=== PATIENT | female | born 1965 | race Caucasian/White ===

== ENCOUNTER 2016-03-09 07:25 | Outpatient (CLI) | payer OTHER ==
[2016-03-09 07:42] LABS: BASOPHILS % 0.6 (0.0-1.5); EOSINOPHILS % 3.8 % (0.0-6.8); LYMPHOCYTES # 1.8 # k/uL (0.6-4.0); MEAN CORPUSCULAR HEMOGLOBIN 30.8 pg (28.0-34.0); MONOCYTES # 0.3 # k/uL (0.0-0.9); MONOCYTES % 3.9 % (0.0-11.0); NEUTROPHILS # 4.2 # k/uL (1.4-7.7)
[2016-03-09 08:14] LABS: eGFR (African) > 60; eGFR (Non-African) > 60
== END 2016-03-09 07:26 ==
LOC: LAB 07:25
PROVIDERS: ATTEND Internal Medicine Nephrology
DX: Z51.81 Encounter for therapeutic drug level monitoring (principal); Z94.4 Liver transplant status; Z79.899 Other long term (current) drug therapy
CPT/HCPCS: 36415; 80053; 80061; 84100; 85025

== ENCOUNTER 2016-04-06 07:18 | Outpatient (CLI) | payer OTHER ==
[2016-04-06 08:12] LABS: BASOPHILS % 0.7 (0.0-1.5); EOSINOPHILS % 3.6 % (0.0-6.8); LYMPHOCYTES # 1.6 # k/uL (0.6-4.0); MEAN CORPUSCULAR HEMOGLOBIN 30.3 pg (28.0-34.0); MONOCYTES # 0.3 # k/uL (0.0-0.9); MONOCYTES % 4.8 % (0.0-11.0); NEUTROPHILS # 4.3 # k/uL (1.4-7.7)
== END 2016-04-06 07:20 ==
LOC: LAB 07:18
PROVIDERS: ATTEND Internal Medicine Nephrology
DX: Z79.899 Other long term (current) drug therapy (principal); Z94.0 Kidney transplant status; E78.5 Hyperlipidemia, unspecified
CPT/HCPCS: 36415; 80069; 85025

== ENCOUNTER 2016-04-15 07:10 | Outpatient (CLI) | payer OTHER | END 2016-04-15 07:30 | LOC: LAB 07:10 | PROVIDERS: ATTEND Internal Medicine Nephrology | DX: Z94.0 Kidney transplant status (principal) | CPT/HCPCS: 36415; 80069 ==

== ENCOUNTER 2016-05-07 07:08 | Outpatient (CLI) | payer OTHER ==
[2016-05-07 07:27] LABS: BASOPHILS % 0.9 (0.0-1.5); EOSINOPHILS % 2.8 % (0.0-6.8); LYMPHOCYTES # 2.1 # k/uL (0.6-4.0); MEAN CORPUSCULAR HEMOGLOBIN 31.6 pg (28.0-34.0); MONOCYTES # 0.4 # k/uL (0.0-0.9); MONOCYTES % 5.1 % (0.0-11.0); NEUTROPHILS # 4.4 # k/uL (1.4-7.7)
== END 2016-05-07 07:10 ==
LOC: LAB 07:08
PROVIDERS: ATTEND Internal Medicine Nephrology
DX: Z51.81 Encounter for therapeutic drug level monitoring (principal); Z79.899 Other long term (current) drug therapy; Z94.0 Kidney transplant status; E78.5 Hyperlipidemia, unspecified
CPT/HCPCS: 36415; 80069; 85025

== ENCOUNTER 2016-06-04 07:10 | Outpatient (CLI) | payer OTHER ==
[2016-06-04 08:04] LABS: BASOPHILS % 1.1 (0.0-1.5); EOSINOPHILS % 3.9 % (0.0-6.8); MEAN CORPUSCULAR VOLUME 92.3 fl (80.0-100.0); MONOCYTES % 4.3 % (0.0-11.0); NEUTROPHILS # 3.9 # k/uL (1.4-7.7)
[2016-06-04 08:19] LABS: eGFR (African) > 60; eGFR (Non-African) > 60
== END 2016-06-04 07:11 ==
LOC: LAB 07:10
PROVIDERS: ATTEND Internal Medicine Nephrology
DX: R53.83 Other fatigue (principal)
CPT/HCPCS: 36415; 80053; 80061; 82306; 84100; 84439; 84443; 84481; 85025

== ENCOUNTER 2016-07-07 07:11 | Outpatient (CLI) | payer OTHER ==
[2016-07-07 07:33] LABS: BASOPHILS % 0.9 (0.0-1.5); EOSINOPHILS % 3.6 % (0.0-6.8); MEAN CORPUSCULAR HEMOGLOBIN 31.1 pg (28.0-34.0); MEAN CORPUSCULAR VOLUME 92.8 fl (80.0-100.0); MONOCYTES % 4.7 % (0.0-11.0); NEUTROPHILS # 4.6 # k/uL (1.4-7.7)
== END 2016-07-07 07:12 ==
LOC: LAB 07:11
PROVIDERS: ATTEND Internal Medicine Nephrology
DX: E55.9 Vitamin D deficiency, unspecified (principal)
CPT/HCPCS: 36415; 80069; 85025

== ENCOUNTER 2016-08-06 07:11 | Outpatient (CLI) | payer OTHER ==
[2016-08-06 07:48] LABS: BASOPHILS % 1.4 (0.0-1.5); EOSINOPHILS % 3.2 % (0.0-6.8); MEAN CORPUSCULAR HEMOGLOBIN 31.9 pg (28.0-34.0); NEUTROPHILS # 4.6 # k/uL (1.4-7.7)
== END 2016-08-06 07:12 ==
LOC: LAB 07:11
PROVIDERS: ATTEND Internal Medicine Nephrology
DX: E78.5 Hyperlipidemia, unspecified (principal); Z94.0 Kidney transplant status; Z79.899 Other long term (current) drug therapy
CPT/HCPCS: 36415; 80069; 85025

== ENCOUNTER 2016-09-06 07:11 | Outpatient (CLI) | payer OTHER ==
[2016-09-06 07:45] LABS: BASOPHILS % 1.1 (0.0-1.5); EOSINOPHILS % 2.9 % (0.0-6.8); MEAN CORPUSCULAR VOLUME 93.4 fl (80.0-100.0); MONOCYTES % 4.1 % (0.0-11.0); NEUTROPHILS # 6.7 # k/uL (1.4-7.7)
[2016-09-06 08:05] LABS: eGFR (African) > 60; eGFR (Non-African) > 60
== END 2016-09-06 07:12 ==
LOC: LAB 07:11
PROVIDERS: ATTEND Internal Medicine Nephrology
DX: Z94.0 Kidney transplant status (principal); Z79.899 Other long term (current) drug therapy; E78.5 Hyperlipidemia, unspecified
CPT/HCPCS: 36415; 80053; 80061; 84100; 85025

== ENCOUNTER 2016-10-07 07:14 | Outpatient (CLI) | payer OTHER ==
[2016-10-07 07:36] LABS: BASOPHILS % 1.3 (0.0-1.5); EOSINOPHILS % 4.5 % (0.0-6.8); MEAN CORPUSCULAR HEMOGLOBIN 31.8 pg (28.0-34.0); MEAN CORPUSCULAR VOLUME 87.5 fl (80.0-100.0); MONOCYTES % 4.8 % (0.0-11.0); NEUTROPHILS # 4.9 # k/uL (1.4-7.7)
== END 2016-10-07 07:15 ==
LOC: LAB 07:14
PROVIDERS: ATTEND Internal Medicine Nephrology
DX: E78.5 Hyperlipidemia, unspecified (principal); Z94.0 Kidney transplant status; Z79.899 Other long term (current) drug therapy
CPT/HCPCS: 36415; 80069; 85025

== ENCOUNTER 2016-11-06 07:11 | Outpatient (CLI) | payer OTHER ==
[2016-11-06 07:32] LABS: BASOPHILS % 1.6 (0.0-1.5); EOSINOPHILS % 2.9 % (0.0-6.8); MEAN CORPUSCULAR HEMOGLOBIN 30.8 pg (28.0-34.0); MEAN CORPUSCULAR VOLUME 89.2 fl (80.0-100.0); MONOCYTES % 5.1 % (0.0-11.0)
== END 2016-11-06 07:12 ==
LOC: LAB 07:11
PROVIDERS: ATTEND Internal Medicine Nephrology
DX: Z94.0 Kidney transplant status (principal); E78.5 Hyperlipidemia, unspecified; Z79.899 Other long term (current) drug therapy
CPT/HCPCS: 36415; 80069; 85025

== ENCOUNTER 2016-12-07 07:10 | Outpatient (CLI) | payer OTHER ==
[2016-12-07 08:00] LABS: BASOPHILS % 1.2 (0.0-1.5); EOSINOPHILS % 4.8 % (0.0-6.8); MEAN CORPUSCULAR HEMOGLOBIN 30.5 pg (28.0-34.0); MEAN CORPUSCULAR VOLUME 90.3 fl (80.0-100.0); NEUTROPHILS # 4.3 # k/uL (1.4-7.7)
[2016-12-07 08:13] LABS: eGFR (African) > 60; eGFR (Non-African) > 60
== END 2016-12-07 07:11 ==
LOC: LAB 07:10
PROVIDERS: ATTEND Internal Medicine Nephrology
DX: Z94.0 Kidney transplant status (principal); Z79.899 Other long term (current) drug therapy; E78.5 Hyperlipidemia, unspecified
CPT/HCPCS: 36415; 80053; 80061; 84100; 85025

== ENCOUNTER 2017-01-06 07:16 | Outpatient (CLI) | payer OTHER ==
[2017-01-06 08:30] LABS: BASOPHILS % 1.6 (0.0-1.5); EOSINOPHILS % 4.3 % (0.0-6.8); MEAN CORPUSCULAR HEMOGLOBIN 31.1 pg (28.0-34.0); MEAN CORPUSCULAR VOLUME 90.6 fl (80.0-100.0); MONOCYTES % 5.6 % (0.0-11.0); NEUTROPHILS # 3.6 # k/uL (1.4-7.7)
== END 2017-01-06 07:17 ==
LOC: LAB 07:16
PROVIDERS: ATTEND Internal Medicine Nephrology
DX: Z94.0 Kidney transplant status (principal); Z79.899 Other long term (current) drug therapy; E78.5 Hyperlipidemia, unspecified
CPT/HCPCS: 36415; 80069; 85025

== ENCOUNTER 2017-02-05 08:31 | Outpatient (CLI) | payer OTHER ==
[2017-02-05 09:59] LABS: BASOPHILS % 0.8 (0.0-1.5); EOSINOPHILS % 3.1 % (0.0-6.8); MEAN CORPUSCULAR VOLUME 91.4 fl (80.0-100.0); MONOCYTES % 5.2 % (0.0-11.0); NEUTROPHILS # 5.2 # k/uL (1.4-7.7)
== END 2017-02-05 08:32 ==
LOC: LAB 08:31
DX: E78.5 Hyperlipidemia, unspecified (principal); Z94.0 Kidney transplant status; Z79.899 Other long term (current) drug therapy
CPT/HCPCS: 36415; 80069; 85025

== ENCOUNTER 2017-03-09 07:13 | Outpatient (CLI) | payer OTHER ==
[2017-03-09 07:48] LABS: BASOPHILS % 1.2 (0.0-1.5); EOSINOPHILS % 3.7 % (0.0-6.8); MEAN CORPUSCULAR HEMOGLOBIN 31.1 pg (28.0-34.0); MEAN CORPUSCULAR VOLUME 93.1 fl (80.0-100.0); MONOCYTES % 4.3 % (0.0-11.0); NEUTROPHILS # 4.3 # k/uL (1.4-7.7)
[2017-03-09 16:49] LABS: eGFR (African) > 60; eGFR (Non-African) > 60
== END 2017-03-09 07:14 ==
LOC: LAB 07:13
PROVIDERS: ATTEND Internal Medicine Nephrology
DX: Z79.899 Other long term (current) drug therapy (principal); E78.5 Hyperlipidemia, unspecified; Z94.0 Kidney transplant status
CPT/HCPCS: 36415; 80053; 80061; 84100; 85025

== ENCOUNTER 2017-04-06 07:09 | Outpatient (CLI) | payer OTHER ==
[2017-04-06 18:19] LABS: BASO % 0.8 % (0.0-1.5); EOS % 4.2 % (0.0-6.8); LYMPH ABS # 1.66 thou/uL (0.60-4.00); MCH. 30.9 pg (28.0-34.0); MCV 91.6 fL (80.0-100.0); MONOCYTE % 6.1 % (0.0-11.0); MONOCYTE ABS # 0.36 thou/uL (0.00-0.90); PLATELET COUNT 221 thou/uL (130-400)
== END 2017-04-06 07:10 ==
LOC: LAB 07:09
PROVIDERS: ATTEND Internal Medicine Nephrology
DX: Z94.0 Kidney transplant status (principal); Z79.899 Other long term (current) drug therapy; E78.5 Hyperlipidemia, unspecified
CPT/HCPCS: 36415; 80069; 85025

== ENCOUNTER 2017-05-07 08:30 | Outpatient (CLI) | payer OTHER ==
[2017-05-07 08:48] LABS: BASOPHILS % 0.9 (0.0-1.5); EOSINOPHILS % 3.4 % (0.0-6.8); MEAN CORPUSCULAR HEMOGLOBIN 31.1 pg (28.0-34.0); MEAN CORPUSCULAR VOLUME 92.2 fl (80.0-100.0); MONOCYTES % 5.3 % (0.0-11.0); NEUTROPHILS # 3.4 # k/uL (1.4-7.7)
== END 2017-05-07 08:31 ==
LOC: LAB 08:30
PROVIDERS: ATTEND Internal Medicine Nephrology
DX: Z94.0 Kidney transplant status (principal); Z79.899 Other long term (current) drug therapy; E78.5 Hyperlipidemia, unspecified
CPT/HCPCS: 36415; 80069; 85025

== ENCOUNTER 2017-06-06 09:22 | Outpatient (CLI) | payer OTHER ==
[2017-06-06 09:43] LABS: BASOPHILS % 0.9 (0.0-1.5); EOSINOPHILS % 5.5 % (0.0-6.8); MONOCYTES % 4.3 % (0.0-11.0); NEUTROPHILS # 3.3 # k/uL (1.4-7.7)
[2017-06-06 10:03] LABS: eGFR (African) > 60; eGFR (Non-African) > 60
== END 2017-06-06 09:23 ==
LOC: LAB 09:22
PROVIDERS: ATTEND Internal Medicine Nephrology
DX: Z94.0 Kidney transplant status (principal); Z79.899 Other long term (current) drug therapy; E78.5 Hyperlipidemia, unspecified
CPT/HCPCS: 36415; 80053; 80061; 84100; 85025

== ENCOUNTER 2017-07-06 07:10 | Outpatient (CLI) | payer OTHER ==
[2017-07-06 07:30] LABS: BASOPHILS % 0.8 (0.0-1.5); EOSINOPHILS % 5.5 % (0.0-6.8); MEAN CORPUSCULAR HEMOGLOBIN 30.2 pg (28.0-34.0); MEAN CORPUSCULAR VOLUME 91.5 fl (80.0-100.0); MONOCYTES % 4.4 % (0.0-11.0); NEUTROPHILS # 3.7 # k/uL (1.4-7.7)
== END 2017-07-06 07:12 ==
LOC: LAB 07:10
PROVIDERS: ATTEND Internal Medicine Nephrology
DX: Z94.0 Kidney transplant status (principal); Z79.899 Other long term (current) drug therapy; E78.5 Hyperlipidemia, unspecified
CPT/HCPCS: 36415; 80069; 85025

== ENCOUNTER 2017-08-06 08:33 | Outpatient (CLI) | payer OTHER ==
[2017-08-06 09:03] LABS: BASOPHILS % 0.8 (0.0-1.5); EOSINOPHILS % 3.7 % (0.0-6.8); MEAN CORPUSCULAR HEMOGLOBIN 30.8 pg (28.0-34.0); MEAN CORPUSCULAR VOLUME 91.5 fl (80.0-100.0); MONOCYTES % 4.5 % (0.0-11.0); NEUTROPHILS # 3.2 # k/uL (1.4-7.7)
== END 2017-08-06 08:38 ==
LOC: LAB 08:33
PROVIDERS: ATTEND Internal Medicine Nephrology
DX: Z94.0 Kidney transplant status (principal); Z79.899 Other long term (current) drug therapy; E78.5 Hyperlipidemia, unspecified
CPT/HCPCS: 36415; 80069; 85025

== ENCOUNTER 2017-09-05 07:14 | Outpatient (CLI) | payer OTHER ==
[2017-09-05 07:29] LABS: BASOPHILS % 0.8 (0.0-1.5); EOSINOPHILS % 3.7 % (0.0-6.8); MEAN CORPUSCULAR HEMOGLOBIN 31.2 pg (28.0-34.0); MEAN CORPUSCULAR VOLUME 90.5 fl (80.0-100.0); MONOCYTES % 4.2 % (0.0-11.0)
[2017-09-05 08:37] LABS: eGFR (African) > 60; eGFR (Non-African) > 60
== END 2017-09-05 07:15 ==
LOC: LAB 07:14
PROVIDERS: ATTEND Internal Medicine Nephrology
DX: Z94.0 Kidney transplant status (principal); Z79.899 Other long term (current) drug therapy; E78.5 Hyperlipidemia, unspecified
CPT/HCPCS: 36415; 80053; 80061; 80069; 84100; 85025

== ENCOUNTER 2017-10-07 07:18 | Outpatient (CLI) | payer OTHER ==
[2017-10-07 07:46] LABS: BASOPHILS % 1.2 (0.0-1.5); EOSINOPHILS % 4.5 % (0.0-6.8); MEAN CORPUSCULAR HEMOGLOBIN 29.6 pg (28.0-34.0); MONOCYTES % 5.8 % (0.0-11.0)
== END 2017-10-07 07:25 ==
LOC: LAB 07:18
PROVIDERS: ATTEND Internal Medicine Nephrology
DX: Z94.0 Kidney transplant status (principal); Z79.899 Other long term (current) drug therapy; E78.5 Hyperlipidemia, unspecified
CPT/HCPCS: 36415; 80069; 85025

== ENCOUNTER 2017-11-05 08:43 | Outpatient (CLI) | payer OTHER ==
[2017-11-05 09:24] LABS: eGFR (Non-African) > 60
[2017-11-05 19:21] LABS: BASO % 0.7 % (0.0-1.5); EOS % 4.2 % (0.0-6.8); LYMPH ABS # 1.96 thou/uL (0.60-4.00); MONOCYTE ABS # 0.32 thou/uL (0.00-0.90); PLATELET COUNT 255 thou/uL (130-400)
== END 2017-11-05 08:44 ==
LOC: LAB 08:43
PROVIDERS: ATTEND Internal Medicine Nephrology
DX: Z94.0 Kidney transplant status (principal); Z79.899 Other long term (current) drug therapy; E78.5 Hyperlipidemia, unspecified
CPT/HCPCS: 80053; 80061; 84100; 85025